=== PATIENT | female | born 1990 | race Caucasian/White ===

== ENCOUNTER 2023-01-26 17:30 | Inpatient (IN) | payer MEDICAID ==
[~2023-01-26] VITALS: Ht 170.2 cm; Wt 83.7 kg
[2023-01-26] MEDS ORDERED: normal saline 1000ML IV soln IVB ONE (17:45)
[2023-01-26 18:11] LABS: BASOPHILS # (AUTO) 0.1 X10'3 (0-0.2); BASOPHILS % (AUTO) 0.6 % (0-1); EOSINOPHILS # (AUTO) 0.1 X10'3 (0-0.9); EOSINOPHILS % (AUTO) 1.2 % (0-6); HEMATOCRIT 44.2 % (35.0-45.0); HEMOGLOBIN 14.5 g/dl (12.0-16.0); LYMPHOCYTES % (AUTO) 24.5 % (21-51); MEAN CORPUSCULAR HEMOGLOBIN 29.9 PG (27.0-31.0); MEAN CORPUSCULAR HGB CONC 32.7 g/dL (33.0-36.5); MEAN CORPUSCULAR VOLUME 91.5 FL (78-98); MEAN PLATELET VOLUME 8.1 FL (7.4-10.4); MONOCYTES # (AUTO) 0.7 X10'3 (0-0.9); MONOCYTES % (AUTO) 8.9 % (2-12); NEUTROPHILS # (AUTO) 5.4 X10'3 (1.8-7.7); NEUTROPHILS % (AUTO) 64.8 % (42-75); PLATELET COUNT 308 X10'3 (140-440); RED BLOOD COUNT 4.83 X10'6 (4.20-5.60); RED CELL DISTRIBUTION WIDTH 12.2 % (11.5-14.5); WHITE BLOOD COUNT 8.3 X10'3 (4.5-11.0)
[2023-01-26 18:28] LABS: ALANINE AMINOTRANSFERASE 39 U/L (12-78); ALBUMIN 3.6 G/DL (3.4-5.0); ALKALINE PHOSPHATASE 104 IU/L (46-116); ANION GAP 8 (8-16); ASPARTATE AMINO TRANSFERASE 28 U/L (10-37); BILIRUBIN,TOTAL 0.4 MG/DL (0.1-1.0); BLOOD UREA NITROGEN 7 MG/DL (7-18); CALCIUM 9.4 MG/DL (8.5-10.1); CHLORIDE 102 MMOL/L (99-107); CREATININE 0.78 MG/DL (0.40-0.90); GLUCOSE 101 MG/DL (70-104); LIPASE < 50 U/L (73-393); POTASSIUM 3.8 MMOL/L (3.5-5.1); SODIUM 138 MMOL/L (135-145); TOTAL CARBON DIOXIDE 27.9 MMOL/L (24-32); TOTAL PROTEIN 7.1 G/DL (6.4-8.2); eGFR 86 ML/MIN
[2023-01-26 19:44] LABS: CLARITY,URINE SLIGHTLY CLOUDY (Clear); COLOR,URINE YELLOW (Yellow); GLUCOSE, URINE NEGATIVE (Neg); KETONES,URINE NEGATIVE (Neg); LEUKOCYTE ESTERASE ,URINE TRACE (Neg); NITRITES, URINE NEGATIVE (Neg); OCCULT BLOOD,URINE NEGATIVE (Neg); PH,URINE 7.5 (4.8-8.0); PROTEIN,URINE NEGATIVE (Neg); URINE HCG NEGATIVE (NEG); UROBILINOGEN,URINE 0.2 E.U/dL (0.2-1.0)
[2023-01-26 19:50] LABS: SQUAMOUS EPITHELIAL CELL,UR MANY /LPF (FEW); UA COLLECTION TYPE CLN CATCH MIDSTREAM
[2023-01-26 19:51] LABS: BACTERIA,URINE FEW /HPF (Neg); RBC,URINE 0-2 /HPF (0-2); TRANSITIONAL EPI CELLS,URINE FEW /HPF; WBC,URINE 0-4 /HPF (0-4)
[2023-01-26] MEDS ORDERED: temazepam 15mg capsule PO PRN (21:00)
--- NOTE | 2023-01-26 22:04 | NUR ---
tele med interviewing pt
[2023-01-26] MEDS ORDERED: diphenhydrAMINE 25mg capsule PO PRN (22:15)
[2023-01-26] MEDS ORDERED: morphine 2 MG/ML inj. syringe IV PRN (22:15)
[2023-01-26] MEDS ORDERED: acetaminophen 325mg tablet PO PRN ×2 (22:15)
[2023-01-26] MEDS ORDERED: diphenhydrAMINE 50 mg/ml inj IV PRN (22:15)
[2023-01-26] MEDS ORDERED: mag hydrox/Alum hydrox/simeth 30ml oral suspension PO PRN (22:15)
[2023-01-26] MEDS ORDERED: bisacodyl 10mg suppository rectal RC PRN (22:15)
[2023-01-26] MEDS ORDERED: ondansetron 4mg rapidly disintigrating tab PO PRN (22:15)
[2023-01-26] MEDS: dextrose 5%-1/2 normal saline 1,000 ML IV SCH (22:15)
[2023-01-26] MEDS ORDERED: HYDROcodone/acetaminophen 5mg/325mg tablet PO PRN (22:15)
[2023-01-26] MEDS ORDERED: metoclopramide 5 mg/ml inj IV PRN (22:15)
[2023-01-26] MEDS ORDERED: ondansetron/PF 4mg/2ml inj IV PRN (22:15)
[2023-01-26] MEDS ORDERED: lamoTRIgine 100mg tablet PO STA (22:16)
[2023-01-26] MEDS ORDERED: risperiDONE 0.5mg tablet PO ONE (22:20)
[2023-01-26 23:02] LABS: CREATINE KINASE 59 U/L (26-192); MAGNESIUM 2.3 MG/DL (1.5-2.4); PHOSPHORUS 2.9 MG/DL (2.3-4.5)
[2023-01-26 23:03] LABS: URINE AMPHETAMINE SCREEN NEGATIVE (Neg); URINE BARBITUATE SCREEN NEGATIVE (Neg); URINE BENZODIAZEPINES SCREEN NEGATIVE (Neg); URINE CANNABINOID SCREEN POSITIVE (Neg); URINE COCAINE SCREEN NEGATIVE (Neg); URINE METHADONE SCREEN NEGATIVE (Neg); URINE OPIATE SCREEN NEGATIVE (Neg); URINE PHENCYCLIDINE SCREEN NEGATIVE (Neg)
[2023-01-26 23:19] LABS: APTT 34 SECONDS (22-32)
[2023-01-26 23:30] LABS: HEMOGLOBIN A1C 5.1 % (4.5-6.2)
[2023-01-26 23:36] LABS: D-DIMER < 0.19 MG/L FEU (0-0.50)
[2023-01-26 23:44] LABS: HIV ANTIBODY 1&2 RAPID NON-REACTIVE (Neg)
[2023-01-27] MEDS ORDERED: [UNRECOGNIZED DRUG - OTHER] (00:32)
[2023-01-27] MEDS ORDERED: BUPR150T8 PO (00:32)
[2023-01-27] MEDS ORDERED: CAT1P PO (00:32)
[2023-01-27] MEDS ORDERED: RISP1TAB98 PO (00:32)
[2023-01-27] MEDS ORDERED: ERGO500041 PO (00:32)
[2023-01-27] MEDS ORDERED: LAMO200T2 PO (00:32)
[2023-01-27 03:09] LABS: BASOPHILS % (AUTO) 0.6 % (0-1); EOSINOPHILS % (AUTO) 0.5 % (0-6); HEMATOCRIT 43.9 % (35.0-45.0); HEMOGLOBIN 14.4 g/dl (12.0-16.0); LYMPHOCYTES # (AUTO) 2.1 X10'3 (1.1-4.8); MEAN CORPUSCULAR HEMOGLOBIN 30.2 PG (27.0-31.0); MEAN CORPUSCULAR HGB CONC 32.7 g/dL (33.0-36.5); MEAN CORPUSCULAR VOLUME 92.3 FL (78-98); MEAN PLATELET VOLUME 8.2 FL (7.4-10.4); MONOCYTES # (AUTO) 0.7 X10'3 (0-0.9); MONOCYTES % (AUTO) 8.5 % (2-12); NEUTROPHILS # (AUTO) 5.4 X10'3 (1.8-7.7); NEUTROPHILS % (AUTO) 65.4 % (42-75); PLATELET COUNT 316 X10'3 (140-440); RED BLOOD COUNT 4.76 X10'6 (4.20-5.60); RED CELL DISTRIBUTION WIDTH 12.1 % (11.5-14.5); WHITE BLOOD COUNT 8.2 X10'3 (4.5-11.0)
[2023-01-27 03:21] LABS: ALANINE AMINOTRANSFERASE 41 U/L (12-78); ALBUMIN 3.6 G/DL (3.4-5.0); ALBUMIN/GLOBULIN RATIO 1.1 (1.1-1.5); ALKALINE PHOSPHATASE 105 IU/L (46-116); ANION GAP 10 (8-16); ASPARTATE AMINO TRANSFERASE 29 U/L (10-37); BILIRUBIN,TOTAL 0.4 MG/DL (0.1-1.0); BLOOD UREA NITROGEN 4 MG/DL (7-18); CALCIUM 9.1 MG/DL (8.5-10.1); CHLORIDE 104 MMOL/L (99-107); CHOL/HDL RATIO 5.2 (0.00-4.99); CHOLESTEROL 173 MG/DL (0-200); CREATININE 0.67 MG/DL (0.40-0.90); GLUCOSE 125 MG/DL (70-104); HDL CHOLESTEROL 33 MG/DL (35-60); LDL CHOLESTEROL 107 MG/DL (50-100); POTASSIUM 3.7 MMOL/L (3.5-5.1); SODIUM 140 MMOL/L (135-145); TOTAL CARBON DIOXIDE 25.7 MMOL/L (24-32); TRIGLYCERIDES 89 MG/DL (20-135); eGFR > 90 ML/MIN
[2023-01-27 03:30] VITALS: BP 120/84
--- NOTE | 2023-01-27 03:30 | NUR ---
Patient in room PCU 3028. I have received report from Aravind MARLEY RN and had the opportunity to ask questions and assume patient care.
--- NOTE | 2023-01-27 03:36 | NUR ---
report called to floor rn tx pt to room by nurse
[2023-01-27] MEDS ORDERED: CLON0.1T PO (04:44)
[2023-01-27 06:00] VITALS: BP 122/77
--- NOTE | 2023-01-27 06:28 | NUR ---
Problems reprioritized. Patient report given, questions answered & plan of care reviewed with Adilene MIRELES.
[2023-01-27] MEDS: K and/or MAG REPLACEMENT MC SCH ×2 (08:00→20:00)
[2023-01-27] MEDS: docusate sod 100mg capsule PO SCH ×2 (08:00→20:00)
--- NOTE | 2023-01-27 11:00 | NUR ---
Per photo technician all MRIs on hold r/t "to many scans" and "hospitalist wants studies held until he assesses pt."
[2023-01-27 12:48] VITALS: BP 121/78
[2023-01-27] MEDS ORDERED: LORazepam 2 mg/ml vial IV ONE (14:00)
--- NOTE | 2023-01-27 14:09 | NUR ---
Malnutrition Consult: Pt admit via EMS from [facility] for ataxic gait possible peripheral neuropathy vs cerebellar dysfunction, rule out Guillain-[place], tremor and dysphagia per EMR. Pt hx chronic marijuana abuse including currently unable to eat lots of foods since they make her gag per EMR. 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 Pt currently NPO receiving D5/half NS at 100ml/hr providing 408 kcals/day w/ B12 levels pending. Current standing scaled wt 184 pounds giving BMI 28.9 appropriate. Pt w/ normal strength, no edema/wounds, and appears WD/WN per MD note. Pt seen by RD at bedside; pt reports PO food intolerance has been random and not at all meals but persists past 6 months. Per pt, UBW ~280 pounds 6 months ago has lost 100 pounds related to current symptoms. RD contacted [facility] who reports most recent wt 195 pounds 12/19/22; likely pt current reported wt loss not fully accurate though has lost ~6% body weight in 5.4 weeks ~1.1% wt loss/week. Given this w/ predicted suboptimal intake pt meets non-severe malnutrition criteria; MD notified. Per RN, pt previously taking Wellbutrin though no active home meds in MD notes at this time. Pt reports has tried protein supplements similar to Ensure at home but didn't notice any changes so stopped. LBM 7/10 per EMR. Will monitor for diet advancement per MD/[employer] recs and further nutrition intervention needs. Rec: 1. advance diet as medically indicated to regular per [employer]/MD recs 2. monitor for initial PO tolerance for ONS needs 3. consider routine MVM given poor nutrition status once PO per physician discretion 4. routine bowel care 5. weekly scaled wt Addendum: 01/27/23 at [address] Amended: Links added.
[2023-01-27] MEDS: dextrose 5%-1/2 normal saline 1,000 ML IV SCH ×2 (14:10→18:15)
[2023-01-27 18:00] VITALS: BP 94/60
[2023-01-27 22:00] VITALS: BP 125/84
[2023-01-27] MEDS: risperiDONE 0.5mg tablet PO SCH (22:04)
[2023-01-28 02:00] VITALS: BP 112/79
[2023-01-28 05:56] LABS: BASOPHILS # (AUTO) 0.1 X10'3 (0-0.2); BASOPHILS % (AUTO) 0.9 % (0-1); EOSINOPHILS # (AUTO) 0.1 X10'3 (0-0.9); EOSINOPHILS % (AUTO) 1.4 % (0-6); HEMATOCRIT 40.4 % (35.0-45.0); HEMOGLOBIN 13.7 g/dl (12.0-16.0); LYMPHOCYTES # (AUTO) 3.3 X10'3 (1.1-4.8); LYMPHOCYTES % (AUTO) 36.2 % (21-51); MEAN CORPUSCULAR HGB CONC 33.9 g/dL (33.0-36.5); MEAN CORPUSCULAR VOLUME 91.5 FL (78-98); MEAN PLATELET VOLUME 8.3 FL (7.4-10.4); MONOCYTES # (AUTO) 0.9 X10'3 (0-0.9); MONOCYTES % (AUTO) 9.7 % (2-12); NEUTROPHILS # (AUTO) 4.7 X10'3 (1.8-7.7); NEUTROPHILS % (AUTO) 51.8 % (42-75); PLATELET COUNT 328 X10'3 (140-440); RED BLOOD COUNT 4.41 X10'6 (4.20-5.60); RED CELL DISTRIBUTION WIDTH 12.4 % (11.5-14.5)
[2023-01-28] MEDS: dextrose 5%-1/2 normal saline 1,000 ML IV SCH ×2 (06:00→14:15)
--- NOTE | 2023-01-28 06:14 | NUR ---
Problems reprioritized. Patient report given, questions answered & plan of care reviewed with Foreign RN.
[2023-01-28 06:24] LABS: ALANINE AMINOTRANSFERASE 43 U/L (12-78); ALBUMIN 3.2 G/DL (3.4-5.0); ALKALINE PHOSPHATASE 99 IU/L (46-116); ANION GAP 8 (8-16); ASPARTATE AMINO TRANSFERASE 37 U/L (10-37); BILIRUBIN,TOTAL 0.4 MG/DL (0.1-1.0); BLOOD UREA NITROGEN 4 MG/DL (7-18); BUN/CREATININE RATIO 6.2 (10.0-20.0); CALCIUM 8.6 MG/DL (8.5-10.1); CHLORIDE 104 MMOL/L (99-107); CREATININE 0.65 MG/DL (0.40-0.90); GLUCOSE 98 MG/DL (70-104); POTASSIUM 3.4 MMOL/L (3.5-5.1); SODIUM 140 MMOL/L (135-145); TOTAL CARBON DIOXIDE 27.6 MMOL/L (24-32); TOTAL PROTEIN 6.3 G/DL (6.4-8.2); eGFR > 90 ML/MIN
--- NOTE | 2023-01-28 06:30 | NUR ---
Patient in room U 3028. I have received report from Bita and had the opportunity to ask questions and assume patient care. Addendum: 01/28/23 at 0704 by Foreign Lopez RN Amended: Links added.
[2023-01-28 07:30] VITALS: BP 144/62
[2023-01-28] MEDS: risperiDONE 0.5mg tablet PO SCH ×2 (08:00→21:22)
[2023-01-28] MEDS ORDERED: lamoTRIgine 100mg tablet PO SCH (08:00)
[2023-01-28] MEDS: cloNIDine 0.1 mg tablet PO SCH (09:06)
[2023-01-28] MEDS: docusate sod 100mg capsule PO SCH ×2 (09:06→21:22)
[2023-01-28] MEDS: buPROPion SR 150mg tablet PO SCH (09:07)
--- NOTE | 2023-01-28 09:38 | NUR ---
Page Sent PAGER ID: [phone] MESSAGE: Jonathan Menon K is 3.4, no replacement ordered, thanks, Foreign
[2023-01-28 11:00] VITALS: BP_SYST 121; BP_SYST 181; BP_DIAS 75; BP_DIAS 83
[2023-01-28] MEDS ORDERED: GADOTERATE MEGLUMINE 7.5 MMOL/15 ML VIAL IV ONE ×2 (11:35→11:36)
[2023-01-28 11:45] LABS: GLUCOSE,CSF 64 MG/DL (40-75); TOTAL PROTEIN,CSF 141 MG/DL (15-45)
[2023-01-28 12:30] LABS: APPEARANCE,CSF CLEAR; CSF RBC 5 /CU MM (0); CSF SUPERNATANT COLOR COLORLESS; CSF VOLUME 16 ML; CSF WBC CT 2 /CU MM (0-5); LYMPHOCYTES,CSF 63 % (40-80); MONOCYTES,CSF 37 % (15-45); TUBE# COUNTED 1
[2023-01-28 12:34] LABS: APPEARANCE,CSF CLEAR; CSF RBC 0 /CU MM (0); CSF SUPERNATANT COLOR COLORLESS; CSF VOLUME 16 ML; CSF WBC CT 3 /CU MM (0-5); LYMPHOCYTES,CSF 77 % (40-80); MONOCYTES,CSF 23 % (15-45); TUBE# COUNTED 4
[2023-01-28 15:27] VITALS: BP 109/76
[2023-01-28 18:00] VITALS: BP 124/81
--- NOTE | 2023-01-28 18:28 | NUR ---
Problems reprioritized. Patient report given, questions answered & plan of care reviewed with Addendum: 01/28/23 at 1829 by Foreign Lopez RN Amended: Links added.
--- NOTE | 2023-01-28 19:00 | NUR ---
Patient in room PCU 3028. I have received report from Foreign MIRELES and had the opportunity to ask questions and assume patient care.
[2023-01-28] MEDS: K and/or MAG REPLACEMENT MC SCH (20:00)
[2023-01-28] MEDS ORDERED: potassium Cl 20 mEq SR tablet PO STA ×2 (20:53)
[2023-01-28 22:00] VITALS: BP 137/79
[2023-01-29] MEDS: dextrose 5%-1/2 normal saline 1,000 ML IV SCH ×2 (00:15→10:38)
[2023-01-29 02:00] VITALS: BP 110/75
--- NOTE | 2023-01-29 06:28 | NUR ---
Patient in room U 3028. I have received report from Bita and had the opportunity to ask questions and assume patient care. Addendum: 01/29/23 at 0629 by Foreign Lopez RN Amended: Links added.
--- NOTE | 2023-01-29 07:07 | NUR ---
Problems reprioritized. Patient report given, questions answered & plan of care reviewed with Foreign RN.
[2023-01-29 07:13] VITALS: BP 97/61
[2023-01-29] MEDS ORDERED: lamoTRIgine 100mg tablet PO SCH (08:00)
[2023-01-29] MEDS: K and/or MAG REPLACEMENT MC SCH ×2 (08:00→20:00)
[2023-01-29] MEDS: buPROPion SR 150mg tablet PO SCH (08:25)
[2023-01-29] MEDS: docusate sod 100mg capsule PO SCH ×2 (08:26→20:00)
[2023-01-29] MEDS: cloNIDine 0.1 mg tablet PO SCH (08:26)
[2023-01-29] MEDS: risperiDONE 0.5mg tablet PO SCH ×2 (08:26→21:24)
[2023-01-29] MEDS: potassium Cl 20 mEq SR tablet PO SCH ×2 (08:32→17:15)
[2023-01-29 11:32] VITALS: BP 108/63
[2023-01-29 11:49] LABS: A/G RATIO 0.9 (0.7-1.7); ALBUMIN 2.9 g/dL (2.9-4.4); BETA GLOBULIN 0.9 g/dL (0.7-1.3); CYTOMEGALOVIRUS AB, IGG <0.60 U/mL (0.00-0.59); CYTOMEGALOVIRUS AB, IGM <30.0 AU/mL (0.0-29.9); EBV AB VCA, IGM <36.0 U/mL (0.0-35.9); GAMMA GLOBULIN 1.1 g/dL (0.4-1.8); GLOBULIN, TOTAL 3.2 g/dL (2.2-3.9); M-SPIKE Not Observed g/dL (Not Observed); PROTEIN, TOTAL, SERUM 6.1 g/dL (6.0-8.5)
[2023-01-29 11:49] LABS: ALDOLASE 3.4 U/L (3.3-10.3)
[2023-01-29 15:00] VITALS: BP 111/73
[2023-01-29 18:00] VITALS: BP 118/77
--- NOTE | 2023-01-29 18:34 | NUR ---
Problems reprioritized. Patient report given, questions answered & plan of care reviewed with Addendum: 01/29/23 at 1835 by Foreign Lopez RN Amended: Links added.
--- NOTE | 2023-01-29 21:30 | NUR ---
Recived patient report from ALINE Sunshine
--- NOTE | 2023-01-29 22:45 | NUR ---
Patient 24- hour urine collection done @ 3340, labelled and sent to lab.
[2023-01-30 06:19] LABS: BASOPHILS % (AUTO) 0.5 % (0-1); EOSINOPHILS # (AUTO) 0.1 X10'3 (0-0.9); EOSINOPHILS % (AUTO) 1.6 % (0-6); HEMATOCRIT 39.5 % (35.0-45.0); HEMOGLOBIN 12.9 g/dl (12.0-16.0); LYMPHOCYTES # (AUTO) 2.7 X10'3 (1.1-4.8); LYMPHOCYTES % (AUTO) 34.7 % (21-51); MEAN CORPUSCULAR HGB CONC 32.6 g/dL (33.0-36.5); MEAN CORPUSCULAR VOLUME 91.8 FL (78-98); MEAN PLATELET VOLUME 8.2 FL (7.4-10.4); MONOCYTES # (AUTO) 0.8 X10'3 (0-0.9); MONOCYTES % (AUTO) 10.8 % (2-12); NEUTROPHILS % (AUTO) 52.4 % (42-75); PLATELET COUNT 291 X10'3 (140-440); RED CELL DISTRIBUTION WIDTH 12.3 % (11.5-14.5); WHITE BLOOD COUNT 7.6 X10'3 (4.5-11.0)
--- NOTE | 2023-01-30 06:20 | NUR ---
Problems reprioritized. Patient report given, questions answered & plan of care reviewed with ALINE ALVES.
[2023-01-30] MEDS: dextrose 5%-1/2 normal saline 1,000 ML IV SCH ×3 (06:33→16:15)
[2023-01-30 06:39] LABS: ALANINE AMINOTRANSFERASE 37 U/L (12-78); ALBUMIN 3.2 G/DL (3.4-5.0); ALBUMIN/GLOBULIN RATIO 1.1 (1.1-1.5); ALKALINE PHOSPHATASE 86 IU/L (46-116); ANION GAP 8 (8-16); ASPARTATE AMINO TRANSFERASE 31 U/L (10-37); BILIRUBIN,TOTAL 0.4 MG/DL (0.1-1.0); BLOOD UREA NITROGEN 6 MG/DL (7-18); CALCIUM 9.1 MG/DL (8.5-10.1); CHLORIDE 104 MMOL/L (99-107); GLUCOSE 98 MG/DL (70-104); POTASSIUM 3.9 MMOL/L (3.5-5.1); SODIUM 140 MMOL/L (135-145); TOTAL CARBON DIOXIDE 28.2 MMOL/L (24-32); TOTAL PROTEIN 6.1 G/DL (6.4-8.2); eGFR > 90 ML/MIN
[2023-01-30 07:00] VITALS: BP 110/68
--- NOTE | 2023-01-30 07:37 | NUR ---
Patient in room PCU 3028. I have received report from Bonnie Montague RN and had the opportunity to ask questions and assume patient care.
[2023-01-30] MEDS: K and/or MAG REPLACEMENT MC SCH ×2 (08:00→20:00)
[2023-01-30] MEDS: docusate sod 100mg capsule PO SCH ×2 (08:00→20:05)
[2023-01-30] MEDS: lamoTRIgine 25mg tablet PO SCH (08:38)
[2023-01-30] MEDS: buPROPion SR 150mg tablet PO SCH (08:39)
[2023-01-30] MEDS: potassium Cl 20 mEq SR tablet PO SCH ×2 (08:39→17:30)
[2023-01-30] MEDS: risperiDONE 0.5mg tablet PO SCH ×2 (08:41→20:06)
[2023-01-30 11:00] VITALS: BP 108/67
--- NOTE | 2023-01-30 14:20 | NUR ---
Reassessment: Pt on a regular diet and overall with poor PO intake, documented with average 32% PO intake of meals. Pt seen at bedside, reports a low appetite with aversion to soft foods. Unfortunately unable to implement "crunchy/hard foods only". Pt with no specific food preferences though does agree to a chocolate Ensure Enlive TID and peach smoothie TID, d/w RN and dietary. Pt is aware of need to increase intake of food. Pt denies food allergies though reports dislike to pork, d/w dietary. LBM 7/10 per EMR though reports a small BM this morning. Pt declines nutrition intervention to assist with a BM. Noted routine Colace is available however pt documented to have refused. Pt provided with RD contact information and encouraged to reach out if needed. Will continue to follow closely. Recommendations: 1. Continue regular diet 2. [place] smoothie and chocolate Ensure Enlive TID 3. Encourage PO intake 4. Consider routine MVM given poor nutrition status per physician discretion 5. Routine bowel care 6. Weekly scaled wts Addendum: 01/30/23 at [address] Amended: Links added.
[2023-01-30 16:00] VITALS: BP 104/58
[2023-01-30 18:00] VITALS: BP 115/73
[2023-01-30] MEDS: lactose-reduced food (Ensure Enlive) - 237ml bottle PO SCH (18:00)
--- NOTE | 2023-01-30 18:45 | NUR ---
Problems reprioritized. Patient report given, questions answered & plan of care reviewed with Leanna RN.
--- NOTE | 2023-01-30 21:10 | NUR ---
PICTURE ENGRAVER documentation: I have reviewed and agree with all interventions, assessments performed and documented by Leanna Grace LVN[].
[2023-01-30] MEDS: magnesium hydroxide 30ml (MOM) UD suspension PO PRN (21:11)
[2023-01-30 23:00] VITALS: BP 122/60
[2023-01-31 02:00] VITALS: BP 110/58
[2023-01-31] MEDS: dextrose 5%-1/2 normal saline 1,000 ML IV SCH ×2 (02:15→12:15)
--- NOTE | 2023-01-31 06:59 | NUR ---
Patient in room PCU 3028. I have received report from Leanna RN and had the opportunity to ask questions and assume patient care.
[2023-01-31 07:00] VITALS: BP_SYST 96; BP_SYST 99; BP_DIAS 60; BP_DIAS 65
[2023-01-31 07:03] LABS: BASOPHILS % (AUTO) 0.6 % (0-1); EOSINOPHILS # (AUTO) 0.1 X10'3 (0-0.9); EOSINOPHILS % (AUTO) 1.3 % (0-6); HEMOGLOBIN 13.2 g/dl (12.0-16.0); LYMPHOCYTES # (AUTO) 2.4 X10'3 (1.1-4.8); LYMPHOCYTES % (AUTO) 29.1 % (21-51); MEAN CORPUSCULAR HEMOGLOBIN 30.3 PG (27.0-31.0); MEAN CORPUSCULAR VOLUME 91.6 FL (78-98); MEAN PLATELET VOLUME 8.2 FL (7.4-10.4); MONOCYTES # (AUTO) 0.9 X10'3 (0-0.9); MONOCYTES % (AUTO) 11.5 % (2-12); NEUTROPHILS # (AUTO) 4.7 X10'3 (1.8-7.7); NEUTROPHILS % (AUTO) 57.5 % (42-75); PLATELET COUNT 298 X10'3 (140-440); RED BLOOD COUNT 4.36 X10'6 (4.20-5.60); RED CELL DISTRIBUTION WIDTH 12.4 % (11.5-14.5); WHITE BLOOD COUNT 8.1 X10'3 (4.5-11.0)
[2023-01-31 07:28] LABS: ANION GAP 9 (8-16); BILIRUBIN,TOTAL 0.4 MG/DL (0.1-1.0); BLOOD UREA NITROGEN 5 MG/DL (7-18); BUN/CREATININE RATIO 7.7 (10.0-20.0); CALCIUM 9.1 MG/DL (8.5-10.1); CHLORIDE 104 MMOL/L (99-107); CREATININE 0.65 MG/DL (0.40-0.90); GLUCOSE 108 MG/DL (70-104); POTASSIUM 3.8 MMOL/L (3.5-5.1); SODIUM 140 MMOL/L (135-145); TOTAL CARBON DIOXIDE 26.8 MMOL/L (24-32); TOTAL PROTEIN 6.6 G/DL (6.4-8.2); eGFR > 90 ML/MIN
[2023-01-31 07:29] LABS: ALANINE AMINOTRANSFERASE 41 U/L (12-78); ALBUMIN 3.4 G/DL (3.4-5.0); ALBUMIN/GLOBULIN RATIO 1.1 (1.1-1.5); ALKALINE PHOSPHATASE 97 IU/L (46-116); ASPARTATE AMINO TRANSFERASE 30 U/L (10-37)
[2023-01-31] MEDS: K and/or MAG REPLACEMENT MC SCH ×2 (08:00→20:00)
[2023-01-31] MEDS: risperiDONE 0.5mg tablet PO SCH ×2 (08:53→19:39)
[2023-01-31] MEDS: lactose-reduced food (Ensure Enlive) - 237ml bottle PO SCH ×3 (08:53→18:00)
[2023-01-31] MEDS: potassium Cl 20 mEq SR tablet PO SCH ×2 (08:53→17:20)
[2023-01-31] MEDS: lamoTRIgine 25mg tablet PO SCH (08:53)
[2023-01-31] MEDS: docusate sod 100mg capsule PO SCH ×2 (08:53→19:39)
[2023-01-31] MEDS: buPROPion SR 150mg tablet PO SCH (08:53)
[2023-01-31] MEDS ORDERED: doxycycline inj 200 MG in normal saline 250ml IV soln 250 ML IV ONE (09:40)
[2023-01-31 11:00] VITALS: BP_SYST 110; BP_SYST 97; BP_DIAS 59; BP_DIAS 62
[2023-01-31 15:00] VITALS: BP_SYST 103; BP_SYST 96; BP_DIAS 61; BP_DIAS 63
[2023-01-31 18:00] VITALS: BP 96/61
--- NOTE | 2023-01-31 18:27 | NUR ---
Problems reprioritized. Patient report given, questions answered & plan of care reviewed with Leanna RN.
[2023-01-31] MEDS: magnesium hydroxide 30ml (MOM) UD suspension PO PRN (19:41)
[2023-01-31] MEDS ORDERED: doxycycline inj 100 MG in normal saline 100ml IV soln 100 ML IV SCH (20:00)
[2023-01-31] MEDS ORDERED: Melatonin 3mg tablet PO SCH (21:00)
[2023-01-31 22:00] VITALS: BP 126/74
--- NOTE | 2023-02-01 01:48 | NUR ---
POLICE AIDE documentation: I have reviewed and agree with assessment performed and documented by AP [place]
[2023-02-01 02:03] VITALS: BP 120/70
[2023-02-01 06:00] VITALS: BP 109/77
--- NOTE | 2023-02-01 07:26 | NUR ---
Patient in room PCU 3010. I have received report from PRANEETH DE SOUZA, and had the opportunity to ask questions and assume patient care.
[2023-02-01] MEDS: K and/or MAG REPLACEMENT MC SCH (08:00)
[2023-02-01] MEDS: lactose-reduced food (Ensure Enlive) - 237ml bottle PO SCH ×2 (08:00→13:38)
[2023-02-01] MEDS ORDERED: lamoTRIgine 25mg tablet PO SCH (08:00)
[2023-02-01] MEDS ORDERED: DOXYCYCLINE 100MG CAPSULE PO SCH (08:33)
[2023-02-01] MEDS: buPROPion SR 150mg tablet PO SCH (08:45)
[2023-02-01] MEDS: risperiDONE 0.5mg tablet PO SCH (08:45)
[2023-02-01] MEDS: docusate sod 100mg capsule PO SCH (08:46)
[2023-02-01] MEDS: potassium Cl 20 mEq SR tablet PO SCH (08:46)
[2023-02-01] MEDS ORDERED: LAMO100T2 PO (10:41)
[2023-02-01] MEDS ORDERED: RISP0.5T65 PO (10:41)
[2023-02-01 11:00] VITALS: BP 102/72
--- NOTE | 2023-02-01 13:40 | NUR ---
PT STABLE FOR DISCHARGE PER MD. DISCHARGE AND FOLLOW UP INSTRUCTIONS REVIEWED WITH PT, APPROPRIATE PAPER WORK SIGNED. PIV REMOVED WITH TIP INTACT. BELONGINGS GATHERED AND SENT WITH PT. PT TRANSFERRED TO PRIVATE VEHICLE BY HOSPITAL STAFF. PT DISCHARGED TO HOME.
[2023-02-02 23:41] LABS: LAMOTRIGINE, SERUM 5.3 ug/mL (2.0-20.0)
== END 2023-02-01 13:45 | disposition home health service (06) | DRG 58 ==
LOC: ER 17:33 → ED HOLD 22:33 → EDBEDREQ 01-27 03:09 → PCU 3S 01-27 03:30
PROVIDERS: ADMIT Family Medicine; ATTEND Family Medicine
PROC: 009U3ZX Drainage of Spinal Canal, Percutaneous Approach, Diagnostic (ICD-10-PCS; principal; 2023-01-28)
PROC: B01B1ZZ Fluoroscopy of Spinal Cord using Low Osmolar Contrast (ICD-10-PCS; 2023-01-28)
DX: G24.01 Drug induced subacute dyskinesia (principal); B27.00 Gammaherpesviral mononucleosis without complication; R27.0 Ataxia, unspecified; F12.10 Cannabis abuse, uncomplicated; Z20.822 Contact with and (suspected) exposure to COVID-19; F32.A Depression, unspecified; F41.1 Generalized anxiety disorder; R20.2 Paresthesia of skin; G47.00 Insomnia, unspecified; I10 Essential (primary) hypertension; R13.10 Dysphagia, unspecified; R00.0 Tachycardia, unspecified; Z71.51 Drug abuse counseling and surveillance of drug abuser; Z79.899 Other long term (current) drug therapy
CPT/HCPCS: 36415; 62328; 70450; 70553; 72156; 72157; 72158; 77003; 80053; 80061; 80305; 81001; 81025; 82085; 82175; 82542; 82550; 82570; 82607; 82945; 83036; 83605; 83655; 83690; 83735; 83825; 83880; 84100; 84145; 84155; 84157; 84165; 84166; 84439; 84443; 84484; 85025; 85379; 85610; 85651; 85730; 86140; 86592; 86644; 86645; 86663; 86664; 86665; 86703; 86738; 87015; 87070; 87081; 87811; 89051; 93005; 93306; 97110; 97116; 97163; 97530; 99285; A9575; G0378; J2060; J2405; J3490; J7030; J7050; J7070